=== PATIENT | male | born 1955 | race Caucasian/White ===

== ENCOUNTER 2020-09-07 08:38 | Outpatient (REF) | payer MEDICARE, MEDICAID, SELFPAY ==
[2020-09-07 09:55] LABS: Estimated Average Glucose 174 mg/dL; Hemoglobin A1C 179.3714 umol/L; Hemoglobin A1c % 7.7 %
[2020-09-07 11:51] LABS: Alanine Aminotransferase 22 U/L (0-40); Albumin Level 4.2 g/dL (3.5-5.0); Alkaline Phosphatase 51 U/L (39-117); Anion Gap 13 (12-20); Aspartate Amino Transferase 18 U/L (5-37); Bilirubin Direct < 0.2 mg/dL (0.0-0.5); Bilirubin Total 0.5 mg/dL (0.0-1.0); Blood Urea Nitrogen 31 mg/dL (9-16); Calcium 8.8 mg/dL (8.4-10.2); Carbon Dioxide 26 mmol/L (22-29); Chloride 108 mmol/L (96-108); Cholesterol 154 mg/dL; Estimated Glomerular Filt Rate 60; Glucose Random 121 mg/dL (60-115); HDL Cholesterol 44 mg/dL; LDL Cholesterol Calculated 72 mg/dl; Potassium 4.5 mmol/L (3.3-5.1); Sodium 142 mmol/L (135-145); Total Protein 6.4 g/dL (6.5-8.0); Triglycerides 191 mg/dL
[2020-09-07 11:55] LABS: Creatinine Urine 61.02 mg/dL
[2020-09-07 11:57] LABS: Microalbum/Creatinine Ratio Ur 1215.9 ug/mg cr
== END 2020-09-07 08:39 | disposition home or self-care (01) ==
LOC: HO.LAB 08:38
PROVIDERS: PCP Student in an Organized Health Care Education/Training Program; Visit Provider Student in an Organized Health Care Education/Training Program
DX: E11.9 Type 2 diabetes mellitus without complications (principal); E11.8 Type 2 diabetes mellitus with unspecified complications; E78.00 Pure hypercholesterolemia, unspecified
CPT/HCPCS: 36415; 80048; 80061; 80076; 82043; 83036

== ENCOUNTER 2020-10-02 09:01 | Outpatient (REF) | payer MEDICARE, MEDICAID, SELFPAY ==
--- NOTE | 2020-10-03 11:08 | MHC.AU.ANO ---
Adult Audiological Evaluation Date of Visit: 10/02/20 Procurement Engineer Used: Not Applicable Reason for Appointment: Audiologic evaluation due to increased difficulties hearing. Pratik reports he is having trouble hearing his television and is asking others to repeat speech frequently. Does patient feel they have a hearing loss?: Yes If Yes, Which Ear?: Both Ears Has hearing been tested previously?: Yes Previous Hearing Test Results: Results are not available for review Hearing Handicap Inventory: HHIE SCORE: 10 Based on HHIE score, patient has: Mild to moderate perceived hearing handicap Ear History: History of Ear Wax Buildup: Both Ears History of occupational noise exposure?: Yes: Drills and tractors, no Hearing Protection used Medical History: Medical History: Diabetes, Heart Problems, High Blood Pressure, Tobacco Use, Vascular Problems Medication List: Spironolact/Hydrochlorothiazid, Metformin, Lisinopril, Crestor, Basaglar Kwikpen, Metoprolol, Asprin, Ambien, Multivitamin Otoscopy: Right Ear: Partially occluded with cerumen Left Ear: Partially occluded with cerumen Tympanometry: Tympanometry performed due to: To assess integrity of the middle ear system Right Ear: Non-compliant Middle Ear System (Type B) Left Ear: Non-compliant Middle Ear System (Type B) Otoacoustic Emissions Right Ear Results: Did not test due to extent of middle ear dysfunction Left Ear Results: Did not test due to extent of middle ear dysfunction Hearing Evaluation: Transducer(s) Used: Insert Earphones Bone Conduction Method: Conventional Audiometry Stimuli Used: Pure Tones Right Ear: Description of Hearing: Normal hearing thresholds at 250 and 500 Hz dropping to a moderately-severe high frequency sensorineural hearing loss Left Ear: Description of Hearing: Normal hearing thresholds at 250 and 500 Hz dropping to a moderately-severe high frequency sensorineural hearing loss Speech Recognition Threshold (SRT): Method Used: Monitored Live Voice Stimuli Used: Spondee Words Right Ear: 25 dB HL Left Ear: 25 dB HL Word Discrimination: Method: Recorded Lists Word Lists Used: NU-6 Right Ear: 92% at 65 dB HL Left Ear: 84% at 65 dB HL QuickSIN: Binaural unaided Quick SIN Test: 9 dB SNR Loss suggesting Pratik experiences a moderate degree of difficulty understanding speech with increasing levels of background noise. Recommendations: Follow-up with a physician and/or Business Executive regarding cerumen removal and middle ear dysfunction Trial with amplification is recommended. Medical clearance from a physician is required before fitting. Hearing aid(s) will be ordered after approval is received and will call Pratik to schedule a Hearing Aid Fitting appointment Audiological re-evaluation in one year. Will send a reminder card Diagnosis: Primary Diagnosis: H90.3 Bilateral Sensorineural Hearing Loss Secondary Diagnosis: H69.93 Unspecified Eustachian Tube Dysfunction, Bilateral Services Performed: Comprehensive Audiological Evaluation (CPT 60865) Tympanometry (CPT 17734) Signature: Student/Clinical Fellow: I have reviewed/agreed with student/fellow documentation: Provider: Isael Cabrales, CCC-A
--- NOTE | 2020-10-03 11:13 | MHC.AU.MED ---
Medical Clearance for Hearing Instrumentation Date: 10/02/20 Patient Name: Pratik Lam Date of : 1955 Primary Care Provider: Referring Provider: Dolores Harris MD We have seen your patient on 10/02/20 and have determined that they are a candidate for amplification (See accompanying report). Specifically, they would benefit from: Hearing aid use in both ears There is a statute that addresses Medical Evaluation Requirements prior to fitting a patient with a hearing aid. According to [place] statute 265 CMR:6.03(1), (a) General. Except as provided in 265 CMR 6.03(1)(b), a hearing therapy teacher shall not sell a hearing aid unless the prospective user has presented to the hearing therapy teacher a written statement signed by a licensed physician that states that the patient's hearing loss has been medically evaluated and the patient may be considered a candidate for a hearing aid. The medical evaluation must have taken place within the preceding six months. Please note: Due to the [place] Statute referenced above, we cannot accept a signature other than that of a licensed physician. AS400 ADMINISTRATOR and PA signatures cannot be accepted. I am in agreement with the above recommendation. There is no medical contraindication for hearing instrumentation. Physician Signature Date Physician Name (Printed)
--- NOTE | 2020-10-03 11:19 | MHC.AU.HAS ---
Hearing Aid Evaluation Date of Visit: 10/02/20 Healthcare Corporate Account Director Used: Not Applicable Historical Information: Description of Hearing: Normal thresholds at 250 and 500 Hz, dropping to a moderately-severe high frequency sensorineural hearing loss bilaterally Current personal amplification information, if applicable: None Summary: Due to the bilateral high frequency hearing loss and increasing difficulties understanding speech, binaural hearing aids are recommended as part of the remediation process. Because Pratik has significant arthritis and difficulty manipulating objects/changing batteries, recommend rechargeable hearing aids. Showed Pratik the styles of hearing aids available and he wants to try MARINA style aids. Hearing Aid Prescription: Based on the individual?s shared listening needs, communication environments, dexterity, desire for connectivity, and personal preferences, the following prescription for amplification has been made: Right ear: Strategic Partnership Specialist: Phonak Model: Audeo P 70-R Battery Size: Rechargeable Color: Beige Store Specialist: #2 Medium Type of Dome: Open Left ear: Left ear prescription to be same as Right Hearing Aid above: Strategic Partnership Specialist: Phonak Model: Audeo P 70-R Battery Size: Rechargeable Color: Beige Store Specialist: #2 Medium Type of Dome: Open Plan of Care: Patient wishes to purchase hearing aids as prescribed Action Taken/Action Needed: Medical Clearance to be requested from PCP/ENT Hearing Fitting to be scheduled when materials arrive Comments: Primary Diagnosis: H90.3 Bilateral Sensorineural Hearing Loss Secondary Diagnosis: H69.93 Unspecified Eustachian Tube Dysfunction, Bilateral Signature: Provider: Isael Cabrales, [facility]
== END 2020-10-02 09:02 | disposition home or self-care (01) ==
LOC: HO.SH 09:01
PROVIDERS: Visit Provider Student in an Organized Health Care Education/Training Program
DX: Z46.1 Encounter for fitting and adjustment of hearing aid (principal); H90.3 Sensorineural hearing loss, bilateral; H69.93 Unspecified Eustachian tube disorder, bilateral
CPT/HCPCS: 92557; 92567; 92591

== ENCOUNTER 2020-11-02 10:26 | Outpatient (REF) | payer MEDICARE, MEDICAID, SELFPAY | END 2020-11-02 10:27 | disposition home or self-care (01) | LOC: HO.HAP 10:26 | PROVIDERS: Visit Provider Student in an Organized Health Care Education/Training Program | DX: Z13.89 Encounter for screening for other disorder (principal) ==

== ENCOUNTER 2020-11-13 09:51 | Outpatient (REF) | payer MEDICARE, MEDICAID, SELFPAY | END 2020-11-13 09:52 | disposition home or self-care (01) | LOC: HO.HAP 09:51 | PROVIDERS: Visit Provider Student in an Organized Health Care Education/Training Program | DX: H90.3 Sensorineural hearing loss, bilateral (principal) | CPT/HCPCS: V5275 ==

== ENCOUNTER 2020-12-01 10:26 | Outpatient (REF) | payer MEDICARE, MEDICAID, SELFPAY | END 2020-12-01 10:27 | disposition home or self-care (01) | LOC: HO.HAP 10:26 | PROVIDERS: Visit Provider Student in an Organized Health Care Education/Training Program | DX: Z46.1 Encounter for fitting and adjustment of hearing aid (principal); H90.3 Sensorineural hearing loss, bilateral | CPT/HCPCS: 92595; V5011; V5020; V5160; V5261; V5264 ==

== ENCOUNTER 2020-12-18 10:22 | Outpatient (REF) | payer MEDICARE, MEDICAID, SELFPAY | END 2020-12-18 10:23 | disposition home or self-care (01) | LOC: HO.HAP 10:22 | PROVIDERS: Visit Provider Student in an Organized Health Care Education/Training Program | DX: Z13.89 Encounter for screening for other disorder (principal) ==

== ENCOUNTER → 2021-05-25 10:47 | Outpatient (BNVA) | payer MEDICARE, MEDICAID, SELFPAY | PROVIDERS: PCP Student in an Organized Health Care Education/Training Program; Visit Provider Urology | DX: N40.1 Benign prostatic hyperplasia with lower urinary tract symptoms (principal); N13.8 Other obstructive and reflux uropathy; R39.12 Poor urinary stream | CPT/HCPCS: 99202 ==

== ENCOUNTER 2021-10-18 09:43 | Outpatient (REF) | payer MEDICARE, MEDICAID, SELFPAY ==
--- NOTE | 2021-10-18 11:34 | MHC.AU.AHA ---
Adult Audiological Evaluation Date of Visit: 10/18/21 Reason for Appointment: History of hearing loss. Patient arrives to determine if there has been a change in hearing. Previous Hearing Test Results: At this clinic on 10/02/2020- Normal/borderline sloping to moderately-severe sensorineural hearing loss bilaterally Ear History: Recent Ear Pain: None Reported Recent Ear Infections: None Reported History of Ear Wax Buildup: Both Ears History of occupational noise exposure?: Yes: Drills and tractors, no Hearing Protection used Medical History: Medical History: Diabetes, Heart Problems, High Blood Pressure, Tobacco Use, Vascular Problems Hearing Instrument History- Right Ear: Ergonomics Consultant: M[employer] Model: Audeo P 70-R Serial Number: [id number] Battery Size: Rechargeable Repair Warranty: 01/25/2024 Dispensed By: [facility] Date of Fittin12/01/2020 Hearing Instrument History- Left Ear: Ergonomics Consultant: [employer] Model: Scoot [employer] P 70-R Serial Number: [id number] Battery Size: Rechargeable Warranty: 01/25/2024 Dispensed By: [facility] Date of Fittin12/01/2020 Otoscopy: Right Ear: Partially occluded with cerumen Left Ear: Partially occluded with cerumen Tympanometry: Tympanometry performed due to: To assess integrity of the middle ear system Right Ear: Non-compliant Middle Ear System (Type B) Left Ear: Non-compliant Middle Ear System (Type B) Hearing Evaluation: Transducer(s) Used: Insert Earphones Method: Conventional Audiometry Stimuli Used: Pure Tones Right Ear: Description of Hearing: Normal/borderline sloping to moderately-severe sensorieneural hearing loss Left Ear: Description of Hearing: Normal/borderline sloping to moderately-severe sensorieneural hearing loss Speech Recognition Threshold (SRT): Method Used: Recorded Lists Right Ear: 30 dBHL Left Ear: 30 dBHL Word Discrimination: Method: Recorded Lists Word Lists Used: W-22 Right Ear: 92% at 70 dBHL Left Ear: 88% at 70 dBHL Most Comfortable Level (MCL): Right Ear: 70 dBHL Left Ear: 70 dBHL Aided Testing: Aided word discrimination: 100% at 50 dBHL in quiet, 92% at 50 dBHL in noise (+10 SNR) Comparison: Compared to the most recent evaluation: Hearing is stable. Recommendations: Audiological re-evaluation in one year. Use of wax softening drops, such as EarWaxMD or Debrox, is recommended. Hearing aid maintenance performed today. No programming changes made today. Diagnosis: Primary Diagnosis: H90.3 Bilateral Sensorineural Hearing Loss Signature: Provider: Isael Mosley, CCC-A
== END 2021-10-18 09:44 | disposition home or self-care (01) ==
LOC: HO.SH 09:43
PROVIDERS: Visit Provider Student in an Organized Health Care Education/Training Program
DX: Z01.118 Encounter for examination of ears and hearing with other abnormal findings (principal); H90.3 Sensorineural hearing loss, bilateral
CPT/HCPCS: 92557; 92567

== ENCOUNTER 2023-06-05 15:00 | Outpatient (REF) | payer MEDICARE, MEDICAID, SELFPAY ==
[2023-06-05 18:19] LABS: Alanine Aminotransferase 25 U/L (0-40); Albumin Level 4.2 g/dL (3.5-5.0); Alkaline Phosphatase 57 U/L (39-117); Anion Gap 17 (12-20); Aspartate Amino Transferase 21 U/L (5-37); Bilirubin Direct 0.1 mg/dL (0.0-0.5); Bilirubin Total 0.4 mg/dL (0.0-1.0); Blood Urea Nitrogen 61 mg/dL (9-16); Calcium 9.6 mg/dL (8.4-10.2); Carbon Dioxide 18 mmol/L (22-29); Chloride 102 mmol/L (96-108); Cholesterol 132 mg/dL (<200); Estimated Glomerular Filt Rate 33; Glucose Random 306 mg/dL (60-115); HDL Cholesterol 36 mg/dL (>40); LDL Cholesterol Calculated 36 mg/dL (<100); Potassium 4.3 mmol/L (3.3-5.1); Sodium 133 mmol/L (135-145); Total Protein 6.9 g/dL (6.5-8.0); Triglycerides 300 mg/dL (<150)
== END 2023-06-05 15:01 | disposition home or self-care (01) ==
LOC: HO.CHCLDS 15:00
PROVIDERS: Visit Provider Student in an Organized Health Care Education/Training Program
DX: E11.21 Type 2 diabetes mellitus with diabetic nephropathy (principal); Z79.4 Long term (current) use of insulin
CPT/HCPCS: 36415; 80048; 80061; 80076

== ENCOUNTER 2024-07-08 10:05 | Outpatient (REF) | payer MEDICARE, MEDICAID, SELFPAY | END 2024-07-08 10:06 | disposition home or self-care (01) | LOC: HO.CHCLDS 10:05 | PROVIDERS: Visit Provider Student in an Organized Health Care Education/Training Program | DX: E11.21 Type 2 diabetes mellitus with diabetic nephropathy (principal); I10 Essential (primary) hypertension; Z79.4 Long term (current) use of insulin | CPT/HCPCS: 36415 ==

== ENCOUNTER 2025-01-11 10:20 | Outpatient (REF) | payer MEDICARE, SELFPAY ==
--- OUTSIDE RECORDS SUMMARY | 2025-01-11 11:27 | XMS_ITS | Clinical Summary ---
Author Organization [facility] Address [address] [address] Phone Care Team Providers Care Industrial Illuminating Engineer Name Role Phone Dolores Harris MD Primary Care Provider [phone] Allergies No known active allergies Medications Basaglar KwikPen 100 UNIT/ML injection INJECT 30 UNITS SUBCUTANEOUSLY EVERY DAY AT BEDTIME 1 Active lisinopril 20 MG tablet Take 20 mg by mouth 1 (one) time each day 7 Active metFORMIN (GLUCOPHAGE) 1000 MG tablet Take 1 tablet by mouth 2 (two) times a day Active metoprolol tartrate (LOPRESSOR) 25 MG tablet Take 1 tablet by mouth 2 (two) times a day Active Multiple Vitamin (Multivitamin) tablet Take 1 tablet by mouth 1 (one) time each day 1 Active rosuvastatin (CRESTOR) 40 MG tablet Take 1 tablet by mouth 1 (one) time each day Active zolpidem (AMBIEN) 10 MG tablet Take 1 tablet by mouth Active cholecalcifero l (VITAMIN D-3) 25 MCG (1000 UT) capsule Take 1 capsule (1,000 Units total) by mouth 1 (one) time each day 60 capsule 3 4 Active spironolactone -hydroCHLOROth iazide (ALDACTAZIDE) 25-25 MG per tablet Take 1 tablet by mouth once daily 90 tablet 5 Active Active Problems Problem Noted Date Diagnosed Date Benign prostatic hyperplasia with lower urinary tract symptom 12/04/2020 Acute kidney failure 10/27/2020 Stage 3a chronic kidney disease 10/27/2020 Hypercholesterolemia 10/27/2020 Hyperkalemia 10/27/2020 Hypertensive renal disease 10/27/2020 Proteinuria 10/27/2020 Renal disorder due to type 2 diabetes mellitus 0 10/27/2020 Vitamin D deficiency 10/27/2020 Resolved Problems Problem Noted Date Diagnosed Date Resolved Date Chronic kidney disease stage 2 10/27/2020 02/04/2022 Encounters Date Type Department Care Team Description 11/30/2024 Orders Only [facility] [address] [place] [id number] Durga Ha MD Stage 3a chronic kidney disease (HCC); Hypercholesterolemia, not otherwise specified; Hypertensive renal disease; Renal disorder due to type 2 diabetes mellitus <Other diabetic kidney complication> (HCC) 11/22/2024 Refill [facility] [address] [place] [id number] Durga Ha MD from Last 3 Months Immunizations Immunization Administration Dates Next Due Influenza Split 03/01/2013,02/26/2012 Influenza, Quadrivalent, Pre servative Free 05/08/2023 Influenza, Quadrivalent, Wit h Preservative 04/06/2019,05/01/2018,04/16/2016,2014 Moderna SARS-COV-2 09/27/2020,08/30/2020 Pneumococcal Conjugate Pcv 20 05/08/2023 Shingrix 06/10/2019,04/06/2019 Tdap 07/12/2015 Family History Medical History Relation Comments Heart disease Father Hypertension Father Diabetes Mother Cancer Sibling ovarian Relation Status Comments Father Mother Sibling Social History Tobacco Use Types Packs/Day Years Used Date Smoking Tobacco: Former Smokeless Tobacco: Never Tobacco Cessation:Counseling Given: No Alcohol Use Standard Drinks/Week Comments Yes 0 (1 standard drink = 0.6 oz pure alcohol) Alcoholic Drinks/day: Occasional social drink Sex and Gender Information Value Date Recorded Sex Assigned at Not on file Legal Sex Male 5:01 PM EST Gender Identity Not on file Sexual Orientation Not on file Last Filed Vital Signs Vital Sign Reading Time Taken Comments Blood Pressure 150/90 07/05/2024 2:57 PM EST Pulse 69 07/05/2024 2:57 PM EST Temperature - - Respiratory Rate - - Oxygen Saturation 99% 07/05/2024 2:57 PM EST Inhaled Oxygen Concentration - - Weight 80 kg (176 lb 6.4 oz) 07/05/2024 2:57 PM EST Height 167.6 cm (5' 6 ) 07/30/2021 2:50 PM EST Body Mass Index 28.47 07/30/2021 2:50 PM EST Plan of Treatment Upcoming Encounters Date Type Department Care Team (Late st Contact Info) Description 03/07/2025 1:45 PM EDT Office Visit [facility] [address] [phone] Durga Ha MD [address] [phone] Health Maintenance Due Date Last Done Comments Colorectal Cancer Screening: Annual FOBT 2003 Colorectal Cancer Screening: Colonoscopy 2003 Colorectal Cancer Screening: Sigmoidoscopy 2003 Diabetes: Ophthalmology Exam 07/23/2020 Diabetes: Pedal Pulse Checked 07/23/2020 Diabetes: Sensory Foot Exam 07/23/2020 Diabetes: Visual Foot Exam 07/23/2020 Diabetes: Hemoglobin A1C 10/06/2024 07/08/2024, 11/21 Influenza Vaccine (#1) 2025 3, 04/06/2019, 05/01/2018, Additional history exists Pneumococcal Vaccine: 50+ Years Completed 05/08/2023 Pneumococcal Vaccine: Peds (0 to 5 Years) and At-Risk Patients (6 to 49 Years) Discontinued 05/08/2023 Hepatitis B Vaccine Aged Out No longe r eligible based on patient's age to complete this topic Insurance Medicaid [place] Medicare Medicaid [place] Medicare Care Teams Industrial Illuminating Engineer Relationship Specialty Start Date End Date Dolores Harris MD [address] [place] [id number] PCP - General 07/03/20
--- OUTSIDE RECORDS SUMMARY | 2025-01-11 11:27 | XMS_ITS | Encounter Summary ---
Author Organization [facility] Address [address] [place] [address] [address] [place] [address] Care Team Providers Care Resident Care Manager Rn Name Role Phone Dolores Harris MD Primary Care Provider [phone] Reason for Visit * Reason Comments Med Refill Encounter Details Date Type Department Care Team ([facility] Contact Info) Description 02/06/2024 Refill [facility] [address] [place], [place] [phone] Dolores Harris MD [address] [place], [place] [phone] Insomnia, unspecified type Social History Tobacco Use Types Packs/Day Years Used Date Smoking Tobacco: Former Cigarettes Smokeless Tobacco: Never Alcohol Use Standard Drinks/Week Comments Defer 0 (1 standard drink = 0.6 oz pur e alcohol) Depression Answer Date Recorded Patient Health Questionnaire-9 Score 4 07/31/2023 Patient Health Questionnaire-9 Score 4 07/31/2023 Last PHQ-9: Questionnaire Data Not on file 0 07/31/2023 Housing Stability Answer Date Recorded What is your housing situation today? I have prachi john 04/14/[address] you li ve. Do you have problems with any of the following? None of the above 04/14/2023 Food Insecurity Answer Date Recorded Within the past 12 months, y ou worried that your food would run out before you got money to buy more: Never True 04/14/2023 Within the past 12 months,th e food you bought just didn't last and you didn't have enough money to get more: Never True Transportation Answer Date Recorded In the past 12 months, has l ack of transportation kept you from medical appts, meetings, work or from getting things needed for daily living? No 04/14/2023 Utilities Answer Date Recorded In the past 12 months, has t he electric, gas, oil or water company threatened to shut off services in your home? No 04/14/2023 Depression Answer Date Recorded Patient Health Questionnaire-2 Score 2 07/31/2023 Sex and Gender Information Value Date Recorded Sex Assigned at Male 04/22/2022 10:18 AM EDT Legal Sex Male 10:18 AM EDT Gender Identity Male 04/22/2022 10:18 AM EDT Sexual Orientation Straight 04/22/2022 10 :18 AM EDT documented as of this encounter Plan of Treatment Not on file documented as of this encounter Visit Diagnoses Diagnosis Insomnia, unspecified type documented in this encounter Additional Health Concerns Assessment Noted Time PHQ-9 Depression Total Score: 4 07/31/19 24 9:39 AM EST documented as of this encounter Care Teams Resident Care Manager Rn Relationship Specialty Start Date End Date Dolores Harris MD [address] [place] [id number] PCP - General Family Medicine 06/04/12 documented as of this encounter
[2025-01-11 14:43] LABS: Alanine Aminotransferase 39 U/L (0-40); Albumin Level 3.9 g/dL (3.5-5.0); Alkaline Phosphatase 43 U/L (39-117); Anion Gap 12 (12-20); Aspartate Amino Transferase 30 U/L (5-37); Blood Urea Nitrogen 47 mg/dL (9-16); Calcium 8.7 mg/dL (8.4-10.2); Carbon Dioxide 23 mmol/L (22-29); Chloride 112 mmol/L (96-108); Cholesterol 130 mg/dL (<200); Estimated Glomerular Filt Rate 44; HDL Cholesterol 43 mg/dL (>40); Potassium 4.4 mmol/L (3.3-5.1); Sodium 143 mmol/L (135-145); Total Protein 6.2 g/dL (6.5-8.0); Triglycerides 160 mg/dL (<150)
== END 2025-01-11 10:21 | disposition home or self-care (01) ==
LOC: HO.CHCLDS 10:20
PROVIDERS: Visit Provider Student in an Organized Health Care Education/Training Program
DX: E78.00 Pure hypercholesterolemia, unspecified (principal); I10 Essential (primary) hypertension; E11.21 Type 2 diabetes mellitus with diabetic nephropathy; Z79.4 Long term (current) use of insulin
CPT/HCPCS: 36415; 80048; 80061; 80076